=== PATIENT | female | born 1960 | race Caucasian/White ===

== ENCOUNTER 2023-01-28 11:25 | Day surgery (SDC) | payer OTHER ==
[2023-01-23 10:09] VITALS: BMI 22.4
[~2023-01-28 11:25] MED LIST: LACTATED RINGERS 1,000 ML IV SCH; LIDOCAINE 1% (10MG/ML) FOR IV START INTRADERMA PRN; ONDANSETRON 4 MG/2 ML VIAL IVP PRN
[2023-01-28 11:48] VITALS: RESP 18; TEMP 97.4
[2023-01-28 11:59] LABS: Glucose,Whole Blood 101 mg/dL (70-110)
[2023-01-28] MEDS ORDERED: PROPOFOL 10 MG/ML 20 ML VIAL IV ONE (12:38)
--- NOTE | 2023-01-28 12:41 | P.GSHP ---
History of Present Illness H&P Date: 01/28/23 Chief Complaint: Screening colonoscopy This a 60-year-old female who presents today for screening colonoscopy. Patient denies any significant GI complaints. Patient's. History of colon polyps. 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 tinnitis History of Any Multi-Drug Resistant Organisms: None Reported Past Surgical History: Heart Catheterization, Orthopedic Surgery Additional Past Surgical History / Comment(s): lt foot surgery right wrist fracture plate and pins, head injury Past Anesthesia/Blood Transfusion Reactions: No Reported Reaction, Motion Sickness Smoking Status: Never smoker - Past Family History Son(s) Family Medical History: Cancer Additional Family Medical History / Comment(s): tongue cancer Father Family Medical History: CVA/TIA Medications and Allergies Home Medications Medication Instructions Recorded Confirmed Type Ascorbic Acid [Vitamin C] 500 mg PO DAILY 03/08/15 01/28/23 History Gabapentin [Neurontin] 600 mg PO HS 03/08/15 01/28/23 History Multivitamins, Thera [Theragran] 1 each PO DAILY 03/08/15 01/28/23 History Verapamil [Isoptin] 80 mg PO BID 03/08/15 01/28/23 History Taylor-3/Dha/Epa/Fish Oil [Fish Oil 1 each PO DAILY 01/23/23 01/28/23 History 1,000 mg Softgel] Allergies Allergy/AdvReac Type Severity Reaction Status Date / Time Penicillins Allergy Rash/Hives Verified 01/28/23 11:42 acetaminophen [From [place]] AdvReac Vomiting Verified 01/28/23 11:42 hydrocodone [From [place]] AdvReac Vomiting Verified 01/28/23 11:42 Surgical - Exam Vital Signs Temp Pulse Resp BP Pulse Ox 97.4 F L 80 18 142/75 98 01/28/23 11:42 01/28/23 11:42 01/28/23 11:42 01/28/23 11:42 01/28/23 11:42 - General well developed, well nourished, no distress - Eyes PERRL - ENT normal pinna - Neck no masses - Respiratory normal expansion - Cardiovascular Rhythm: regular - Abdomen Abdomen: soft, non tender Assessment and Plan Assessment: History of colon polyps. We'll perform screening colonoscopy.
--- NOTE | 2023-01-28 12:56 | P.OP ---
Date of Procedure: 01/28/23 Preoperative Diagnosis: Screening colonoscopy Postoperative Diagnosis: Normal colonoscopy Procedure(s) Performed: Colonoscopy Anesthesia: MAC Surgeon: Dmitriy Shi Pathology: none sent Condition: stable Disposition: PACU Description of Procedure: Patient's placed on the endoscopy table in the lateral position. She received IV sedation. Digital rectal exam was performed. This revealed no abnormalities. The flexible colonoscope was then placed patient anus and passed throughout the entire colon. The ileocecal valve was visualized.. The cecum, ascending and transverse colon appeared normal. The descending and sigmoid colon appeared normal. Scope was then withdrawn into the rectum and this appeared normal. Scope withdrawn for patient.
[2023-01-28 13:23] VITALS: BP 140/60; PULSE 62
== END 2023-01-28 13:41 | disposition home or self-care (01) ==
LOC: ORWHC2ENDO 11:25
PROVIDERS: ATTEND Surgery
DX: Z12.11 Encounter for screening for malignant neoplasm of colon (principal); I48.91 Unspecified atrial fibrillation; Z86.010 Personal history of colon polyps; Z98.890 Other specified postprocedural states; Z82.3 Family history of stroke; Z88.0 Allergy status to penicillin; Z88.5 Allergy status to narcotic agent; Z79.899 Other long term (current) drug therapy
CPT/HCPCS: J2704; G0121